=== PATIENT | male | born 1945 | race Caucasian/White ===

== ENCOUNTER 2022-05-05 09:40 | Observation (INO) ==
[2022-05-05 11:10] LABS: Albumin 3.9 G/DL (3.4-5.0); Bilirubin,Total 0.6 MG/DL (0.20-1.00); Calcium 9.8 MG/DL (8.5-10.1); Osmolality,Calculated 280.8 MOS/KG (273-304)
[2022-05-05] MEDS ORDERED: SODIUM CHLORIDE 0.9% 1,000 ML IV STA (11:38)
[2022-05-05 12:49] LABS: Basophils % 0.4 % (0.0-0.8); Eosinophils # 0.2 10*3/uL (0.0-0.87); Eosinophils % 1.6 % (0.00-10.9); Hematocrit 35.2 VOL% (42.0-52.0); Hemoglobin 11.9 GM/DL (14.0-18.0); Immature Granulocytes % 0.5 %; Immature Granulocytes Absolute 0.06 #; Lymphocytes # 3.2 10*3/uL (1.4-4.0); Lymphocytes % 28.9 % (21.2-54.2); Mean Corpuscular HGB Conc 33.8 GM/DL (32-36); Mean Corpuscular Volume 99.7 FL (87-102); Mean Platelet Volume 9.6 FL (9.6-12.0); Monocytes # 1.3 10*3/uL (0.11-0.8); Neutrophils % 56.6 % (38.7-73.9); Platelet Count 226 T/CUMM (130-400); Red Blood Count 3.53 MC/CUMM (3.8-5.5); Red Cell Distribution Width 12.3 % (9.3-17.3)
[2022-05-05] MEDS ORDERED: ONDANSETRON 4 MG/2 ML VIAL IV PRN (14:45)
[2022-05-05] MEDS ORDERED: ACETAMINOPHEN 325 MG TABLET PO PRN (14:45)
[2022-05-05] MEDS: DABIGATRAN 75 MG CAPSULE PO SCH (20:50)
[2022-05-05] MEDS: MIDODRINE 2.5 MG TABLET PO SCH ×2 (20:51→21:17)
[2022-05-05] MEDS: GLIMEPIRIDE 4 MG TABLET PO SCH (20:51)
[2022-05-05] MEDS ORDERED: ENOXAPARIN 40 MG/0.4 ML SYRINGE SUBCUT SCH (21:00)
[2022-05-06 04:44] LABS: Basophils % 0.5 % (0.0-0.8); Eosinophils # 0.3 10*3/uL (0.0-0.87); Eosinophils % 3.2 % (0.00-10.9); Hematocrit 33.9 VOL% (42.0-52.0); Hemoglobin 11.3 GM/DL (14.0-18.0); Immature Granulocytes % 0.6 %; Immature Granulocytes Absolute 0.05 #; Lymphocytes # 3.3 10*3/uL (1.4-4.0); Lymphocytes % 41.8 % (21.2-54.2); Mean Corpuscular HGB Conc 33.3 GM/DL (32-36); Mean Corpuscular Volume 100.3 FL (87-102); Mean Platelet Volume 10.3 FL (9.6-12.0); Monocytes # 0.7 10*3/uL (0.11-0.8); Monocytes % 8.6 % (1.7-12.7); Neutrophils % 45.3 % (38.7-73.9); Platelet Count 232 T/CUMM (130-400); Red Blood Count 3.38 MC/CUMM (3.8-5.5); Red Cell Distribution Width 12.1 % (9.3-17.3); White Blood Count 7.9 T/CUMM (4-12)
[2022-05-06 05:42] LABS: Calcium 8.9 MG/DL (8.5-10.1); Osmolality,Calculated 283.1 MOS/KG (273-304); Potassium 3.7 MMOL/L (3.5-5.1); Thyroid Stimulating Hormone 3.51 uIU/ml (0.358-3.74)
[2022-05-06] MEDS: THYROID 60 MG TABLET PO SCH (06:03)
[2022-05-06] MEDS ORDERED: DEXTROSE 10% 250 ML IV PRN (07:33)
[2022-05-06] MEDS ORDERED: SODIUM CHLORIDE 0.9% 500 ML IV ONE (07:35)
[2022-05-06] MEDS ORDERED: DEXTROSE 10% 250 ML BAG IV PRN (07:37)
[2022-05-06] MEDS ORDERED: DILTIAZEM CD 120 MG CAPSULE PO SCH (09:00)
[2022-05-06] MEDS: MAGNESIUM CHLORIDE 64 MG TABLET PO SCH (09:00)
[2022-05-06] MEDS: GLIMEPIRIDE 4 MG TABLET PO SCH ×2 (09:05→21:20)
[2022-05-06] MEDS: PANTOPRAZOLE 40 MG TABLET PO SCH (09:09)
[2022-05-06] MEDS: MIDODRINE 2.5 MG TABLET PO SCH ×3 (09:09→21:20)
[2022-05-06] MEDS: CHOLECALCIFEROL 1,000 UNIT TABLET PO SCH (09:09)
[2022-05-06] MEDS: DOCUSATE SODIUM 100 MG CAPSULE PO PRN (09:09)
[2022-05-06] MEDS: ATORVASTATIN 40 MG TABLET PO SCH (09:09)
[2022-05-06] MEDS: ASPIRIN EC 81 MG TABLET PO SCH (09:09)
[2022-05-06] MEDS: DABIGATRAN 75 MG CAPSULE PO SCH ×2 (09:10→21:21)
[2022-05-06] MEDS: INSULIN LISPRO PROTAMINE/LISPRO 75/25 100 UNIT/ML SUBCUT SCH (09:13)
[2022-05-06] MEDS: NON-FORMULARY MEDICATION (Cinnamon Bark [Cinnamon] 500 mg Capsule) PO SCH (10:01)
[2022-05-07 05:04] LABS: Basophils % 0.6 % (0.0-0.8); Eosinophils # 0.3 10*3/uL (0.0-0.87); Eosinophils % 4.1 % (0.00-10.9); Hematocrit 35.3 VOL% (42.0-52.0); Hemoglobin 11.6 GM/DL (14.0-18.0); Immature Granulocytes % 0.6 %; Immature Granulocytes Absolute 0.04 #; Lymphocytes # 2.4 10*3/uL (1.4-4.0); Mean Corpuscular HGB Conc 32.9 GM/DL (32-36); Monocytes # 0.6 10*3/uL (0.11-0.8); Monocytes % 9.7 % (1.7-12.7); Platelet Count 224 T/CUMM (130-400); Red Blood Count 3.46 MC/CUMM (3.8-5.5); Red Cell Distribution Width 11.9 % (9.3-17.3); White Blood Count 6.3 T/CUMM (4-12)
[2022-05-07] MEDS: THYROID 60 MG TABLET PO SCH (05:30)
[2022-05-07 05:34] LABS: Calcium 8.5 MG/DL (8.5-10.1); Potassium 3.7 MMOL/L (3.5-5.1)
[2022-05-07 08:32] VITALS: BP 143/72
[2022-05-07] MEDS: DABIGATRAN 75 MG CAPSULE PO SCH (09:07)
[2022-05-07] MEDS: PANTOPRAZOLE 40 MG TABLET PO SCH (09:08)
[2022-05-07] MEDS: DOCUSATE SODIUM 100 MG CAPSULE PO PRN (09:08)
[2022-05-07] MEDS: MAGNESIUM CHLORIDE 64 MG TABLET PO SCH (09:08)
[2022-05-07] MEDS: CHOLECALCIFEROL 1,000 UNIT TABLET PO SCH (09:08)
[2022-05-07] MEDS: ATORVASTATIN 40 MG TABLET PO SCH (09:09)
[2022-05-07] MEDS: MIDODRINE 2.5 MG TABLET PO SCH (09:09)
[2022-05-07] MEDS: INSULIN LISPRO PROTAMINE/LISPRO 75/25 100 UNIT/ML SUBCUT SCH (09:15)
[2022-05-07] MEDS: ASPIRIN EC 81 MG TABLET PO SCH (09:16)
[2022-05-07] MEDS: GLIMEPIRIDE 4 MG TABLET PO SCH (09:17)
[2022-05-07] MEDS: NON-FORMULARY MEDICATION (Cinnamon Bark [Cinnamon] 500 mg Capsule) PO SCH (09:17)
== END 2022-05-07 12:21 | disposition home or self-care (01) ==
LOC: N.EDINP 09:40 → N.ED 09:40 → N.EDINP 16:50 → N.2W 17:33
PROVIDERS: ADMIT Hospitalist; ATTEND Hospitalist